=== PATIENT | female | born 2000 ===

== ENCOUNTER 2019-04-11 05:33 | Emergency (ER) | payer BC ==
[2019-04-11] MEDS ORDERED: NORMAL SALINE 1000 ML 1,000 ML IV ONE (06:21)
[2019-04-11] MEDS ORDERED: ONDANSETRON HCL INJ/PF 4 MG/2 ML SDV IV ONE (06:21)
--- NOTE | 2019-04-11 06:21 | ER Document Report ---
ED GI/ - General Chief Complaint: Nausea/Vomiting Stated Complaint: VOMITING,BODY ACHE,FEVER Time Seen by Provider: 04/11/19 06:16 Notes: CHIEF COMPLAINT: Vomiting since yesterday HPI: 18-year-old female presenting to the emergency department complaining of nausea vomiting that began yesterday. Patient's cousin recently in the emergency department with similar complaint. Patient has not had a fever, has had chills at home. Patient states that she only has abdominal cramping prior to vomiting. Threw up 4 times yesterday, 4 times this morning. No dysuria. ROS: See HPI - all other systems were reviewed and are otherwise negative Constitutional: no fever Eyes: no drainage, no blurred vision ENT: no runny nose, no sore throat Cardiovascular: no chest pain Resp: no SOB, no cough GI: + vomiting, no diarrhea, + abdominal pain just prior to vomiting : no dysuria Integumentary: no rash Allergy: no hives Musculoskeletal: no extremity pain or swelling Neurological: no numbness/tingling, no weakness MEDICATIONS: I agree with the patient medications as charted by the RN. ALLERGIES: I agree with the allergies as charted by the RN. PAST MEDICAL HISTORY/PAST SURGICAL HISTORY: Reviewed and agree as charted by RN. SOCIAL HISTORY: Reviewed and agree as charted by RN. FAMILY HISTORY: No significant familial comorbid conditions directly related to patient complaint EXAM: Reviewed vital signs as charted by RN. CONSTITUTIONAL: Alert and oriented and responds appropriately to questions. Well-appearing; well-nourished, mild distress secondary to nausea HEAD: Normocephalic; atraumatic EYES: PERRL; Conjunctivae clear, sclerae non-icteric ENT: normal nose; no rhinorrhea; moist mucous membranes; pharynx without lesions noted, no uvula edema or deviation, no tonsillar hypertrophy, phonation normal NECK: Supple without meningismus; non-tender; no cervical lymphadenopathy, no masses CARD: RRR; no murmurs, no clicks, no rubs, no gallops; symmetric distal pulses RESP: Normal chest excursion without splinting or tachypnea; breath sounds clear and equal bilaterally; no wheezes, no rhonchi, no rales, pulse oximetry 98% on room air not hypoxic ABD/GI: Normal bowel sounds; non-distended; soft, non-tender, no rebound, no g uarding; no palpable organomegaly or masses. BACK: The back appears normal and is non-tender to palpation, there is no CVA tenderness EXT: Normal ROM in all joints; non-tender to palpation; no cyanosis, no effusions, no edema SKIN: Normal color for age and race; warm; dry; good turgor; no acute lesions noted NEURO: Moves all extremities equally; Motor and sensory function intact PSYCH: The patient's mood and manner are appropriate. Grooming and personal hygiene are appropriate. MDM: 18-year-old female with likely viral GI bug. Recent exposure to a family member who had similar. No direct focal abdominal pain on exam this morning. Will check screening labs, urinalysis, give IV fluids and Zofran plan to reassess if patient is able to tolerate oral fluids and lab work does not look s ignificantly abnormal anticipate discharge home to follow-up with PCP TRAVEL OUTSIDE OF THE [place] IN LAST 30 DAYS: No - Related Data Allergies/Adverse Reactions: No Known Allergies Allergy (Verified 04/11/19 06:06) Past Medical History - Social History Smoking Status: Never Smoker Family History: Reviewed & Not Pertinent Patient has suicidal ideation: No Patient has homicidal ideation: No Physical Exam - Vital signs Vitals: Temp Pulse Resp BP Pulse Ox 98.2 F 99 H 16 111/67 99 04/11/19 05:45 04/11/19 05:45 04/11/19 05:45 04/11/19 05:45 04/11/19 05:45 Course - Re-evaluation Re-evalutation: 04/11/19 06:55 Patient feels slightly better. Will give Tylenol for leg cramping. Lab work does not show acute emergent abnormalities. Will orally challenge if successful anticipate discharge home to follow-up with PCP - Vital Signs Vital signs: Temp Pulse Resp BP Pulse Ox 98.2 F 99 H 16 111/67 99 04/11/19 05:45 04/11/19 05:45 04/11/19 05:45 04/11/19 05:45 04/11/19 05:45 - Laboratory Result Diagrams: 04/11/19 06:15 04/11/19 06:15 Laboratory results interpreted by me: 02/17/20 02/17/20 02/17/20 06:10 06:15 06:15 Lymph % (Auto) 6.4 L Seg Neutrophils % 89.0 H BUN 22 H Total Bilirubin 1.4 H Urine Ketones 20 H Urine Blood LARGE H Discharge - Discharge Clinical Impression: Nausea & vomiting Qualifiers: Vomiting type: unspecified Vomiting Intractability: unspecified Qualified Code(s): R11.2 - Nausea with vomiting, unspecified Condition: Stable Disposition: HOME, SELF-CARE Additional Instructions: Hydrate well at home. Continue Zofran for nausea vomiting. Return to the emergency department for onset of fever greater than 101 or focal abdominal pain. Prescriptions: Ondansetron [Zofran Odt 4 mg Tablet] 1 - 2 tab PO Q4H PRN #15 tab.rapdis PRN Reason: For Nausea/Vomiting Referrals: KENDELL CORONEL MD [ACTIVE STAFF] - Follow up as needed
[2019-04-11 06:25] LABS: ABSOLUTE LYMPHOCYTES (AUTO) 0.5 10^3/uL (0.5-4.7); ABSOLUTE MONOCYTES (AUTO) 0.4 10^3/uL (0.1-1.4); ABSOLUTE NEUT (AUTO) 7.4 10^3/uL (1.7-8.2); BASOPHILS % (AUTO) 0.1 % (0-2); LYMPHOCYTES % (AUTO) 6.4 % (13-45); MEAN CORPUSCULAR HEMOGLOBIN 30.8 pg (27.0-33.4); MEAN CORPUSCULAR HGB CONC 34.9 g/dL (32.0-36.0); MEAN CORPUSCULAR VOLUME 88 fl (80-97); MONOCYTES % (AUTO) 4.5 % (3-13); PLATELET COUNT 209 10^3/uL (150-450); RED BLOOD COUNT 4.87 10^6/uL (3.72-5.28); RED CELL DISTRIBUTION WIDTH 13.3 % (11.5-14.0); TOTAL CELLS COUNTED % (AUTO) 100 %; WHITE BLOOD COUNT 8.3 10^3/uL (4.0-10.5)
[2019-04-11 06:32] LABS: APPEARANCE,URINE SLIGHTLY-CLOUDY; BILIRUBIN,URINE NEGATIVE (NEGATIVE); COLOR,URINE YELLOW; GLUCOSE, URINE NEGATIVE (NEGATIVE); KETONES,URINE 20 mg/dL (NEGATIVE); LEUKOCYTE ESTERASE,URINE NEGATIVE (NEGATIVE); NITRITE,URINE NEGATIVE (NEGATIVE); PROTEIN,URINE NEGATIVE (NEGATIVE); URINE SPECIFIC GRAVITY 1.029; UROBILINOGEN,URINE NEGATIVE mg/dL (<2.0)
[2019-04-11 06:43] LABS: ALBUMIN 4.7 g/dL (3.7-5.6); ALKALINE PHOSPHATASE 50 U/L (50-135); ANION GAP 12 (5-19); ASPARTATE AMINO TRANSFERASE 22 U/L (5-30); BILIRUBIN,TOTAL 1.4 mg/dL (0.2-1.3); BLOOD UREA NITROGEN 22 mg/dL (7-20); CALCIUM 9.3 mg/dL (8.4-10.2); CARBON DIOXIDE 25 mmol/L (22-30); CHLORIDE 101 mmol/L (98-107); GLUCOSE 103 mg/dL (75-110); POTASSIUM 4.2 mmol/L (3.6-5.0)
[2019-04-11] MEDS ORDERED: ACETAMINOPHEN 325 MG TABLET PO ONE (06:53)
[2019-04-11 07:15] VITALS: BP 111/64
== END 2019-04-11 07:14 | disposition home or self-care (01) ==
LOC: ER 05:33
DX: R11.2 Nausea with vomiting, unspecified (principal); R68.83 Chills (without fever); R10.9 Unspecified abdominal pain
CPT/HCPCS: 99284; 96361; 96374; 36415; 83690; 85025; 81025; 80053; 81001; J2405; J7030